=== PATIENT | female | born 1970 | race Caucasian/White ===

== ENCOUNTER 2016-08-01 09:45 | Emergency (ER) | payer BC ==
[~2016-08-01] VITALS: Ht 162.6 cm; Wt 86.2 kg
[2016-08-01] MEDS ORDERED: ONDANSETRON PF 4 MG/2 ML VIAL. IV ONE (11:00)
[2016-08-01] MEDS ORDERED: IBUPROFEN 800 MG TABLET. PO ONE (11:00)
[2016-08-01] MEDS ORDERED: IV NORMAL SALINE 1000ML BAG 1,000 ML IV ONE (11:00)
[2016-08-01 11:17] LABS: BILIRUBIN,URINE SMALL (NEG); GLUCOSE,URINE NEGATIVE (NEG); NITRITE,URINE NEGATIVE (NEG); PROTEIN,URINE 30 mg/dL (NEG-TRACE)
[2016-08-01 11:25] LABS: BASO # 0.1 x10^3/uL (0.0-0.2); BASO % 1 % (0-3); EOS % 0 % (0-3); HEMATOCRIT 35.8 % (36.0-47.0); HEMOGLOBIN 11.8 g/dL (12.0-15.5); LYMPH # 0.7 x10^3/uL (1.0-4.8); LYMPH % 15 % (24-48); MEAN CORPUSCULAR HEMOGLOBIN 33 pg (25-35); MEAN CORPUSCULAR HGB CONC 33 g/dL (31-37); MEAN CORPUSCULAR VOLUME 99 fL (79-100); MONO % 11 % (0-9); NEUT % 73 % (31-73); PLATELET COUNT 173 x10^3/uL (140-400); RED BLOOD COUNT 3.63 x10^6/uL (3.50-5.40); RED CELL DISTRIBUTION WIDTH 16.1 % (11.5-14.5); WHITE BLOOD COUNT 4.8 x10^3/uL (4.0-11.0)
[2016-08-01 11:25] LABS: BARBITURATES NEG (NEG); BENZODIAZEPINES NEG (NEG); CANNABINOIDS NEG (NEG); COCAINE NEG (NEG); METHADONE NEG (NEG); OPIATES NEG (NEG); PHENCYCLIDINE NEG (NEG)
[2016-08-01 11:26] LABS: ETHANOL, URINE POS (NEG)
[2016-08-01 11:29] LABS: CALCIUM 8.3 mg/dL (8.5-10.1); CREATININE 0.8 mg/dL (0.6-1.0); GFR 77.9; POTASSIUM 3.2 mmol/L (3.5-5.1)
[2016-08-01 11:32] LABS: BACTERIA,URINE FEW /HPF (0-FEW); RBC,URINE RARE /HPF (0-2); SQUAMOUS EPITHELIAL CELL,UR MANY /LPF
[2016-08-01 11:33] LABS: YEAST,URINE PRESENT /HPF
[2016-08-01 11:33] LABS: OBC FLU VALID
[2016-08-01 11:35] LABS: ALBUMIN 2.9 g/dL (3.4-5.0); ALBUMIN/GLOBULIN RATIO 0.5 (1.0-1.7); TOTAL PROTEIN 8.3 g/dL (6.4-8.2)
--- NOTE | 2016-08-01 11:36 | RAD ---
Chest, 2 views, 08/01/2016: History: Cough The heart size and pulmonary vascularity are normal. No pulmonary infiltrates are seen. There is no evidence of pleural fluid. IMPRESSION: No acute cardiopulmonary abnormality is detected.
[2016-08-01] MEDS ORDERED: FLUC150T PO (13:29)
[2016-08-01] MEDS ORDERED: CEPH500T PO (13:29)
[2016-08-01] MEDS ORDERED: BENZ100C PO (13:29)
--- NOTE | 2016-08-01 13:29 | PHYS DOC ---
Past Medical History Past Medical History: Anxiety, GERD, Liver Disease, Other Additional Past Medical Histor: insomnia Past Surgical History: Hysterectomy, Tonsillectomy, Other Additional Past Surgical Histo: uterine ablation Additional Information: quit x 20 years ago Alcohol Use: Heavy Drug Use: None Adult General Chief Complaint Chief Complaint: FLU SYMPTOM HPI HPI Patient is a 45 year old female with history of alcohol abuse, liver cirrhosis , who presents today with multiple complaints. Patient is complaining of a productive cough for 5 days, she is also complaining of a sore throat and bodyaches. She is also complaining of posttussis emesis. Patient denies any abdominal pain. Denies any fever. She states she did drink last night but she will not mention how much. She states this is a chronic issue she does not want it addressed. Review of Systems Review of Systems Constitutional: See history of present illness Eyes: Denies change in visual acuity, redness, or eye pain [] HENT: sore throat [] Respiratory: cough Cardiovascular: No additional information not addressed in HPI [] GI: See history of present illness : Denies dysuria or hematuria [] Musculoskeletal: Denies back pain or joint pain [] Integument: Denies rash or skin lesions [] Neurologic: Denies headache, focal weakness or sensory changes [] Endocrine: Denies polyuria or polydipsia [] Current Medications Current Medications Current Medications Medications (Trade) Dose Ordered Sig/Romeo Start Time Stop Time Status Last Admin Dose Admin Ibuprofen (Motrin) 800 mg 1X ONCE 08/01/16 11:00 08/01/16 11:01 DC 08/01/16 11:42 800 MG Ondansetron HCl (Zofran) 4 mg 1X ONCE 08/01/16 11:00 08/01/16 11:01 DC 08/01/16 11:40 4 MG Sodium Chloride (Iv Sodium Chloride 0.9% 1000ml Bag) 1,000 ml @ 1,000 mls/hr 1X ONCE 08/01/16 11:00 08/01/16 11:59 DC 08/01/16 11:10 1,000 MLS/HR Allergies Allergies Allergies Coded Allergies Type Severity Reaction Last Updated Verified No Known Drug Allergies 08/01/16 No Physical Exam Physical Exam Constitutional: Well developed, well nourished, no acute distress, non-toxic appearance. [] HENT: Normocephalic, atraumatic, bilateral external ears normal, oropharynx moist, no oral exudates, nose normal. [] Eyes: PERRLA, EOMI, conjunctiva normal, no discharge. [] Neck: Normal range of motion, no tenderness, supple, no stridor. [] Cardiovascular:Heart rate regular rhythm, no murmur [] Lungs & Thorax: Bilateral breath sounds clear to auscultation [] Abdomen: Bowel sounds normal, soft, no tenderness, no masses, no pulsatile masses. [] Skin: Warm, dry, no erythema, no rash. [] Back: No tenderness, no CVA tenderness. [] Extremities: No tenderness, no cyanosis, no clubbing, ROM intact, no edema. [] Neurologic: Alert and oriented X 3, normal motor function, normal sensory function, no focal deficits noted. [] Psychologic: Affect normal, judgement normal, mood normal. [] Current Patient Data Vital Signs Vital Signs Date Time Temp Pulse Resp B/P Pulse Ox O2 Delivery O2 Flow Rate FiO2 08/01/16 10:30 99.7 93 22 124/65 98 Room Air 99.7 Lab Values Laboratory Tests Test 08/01/16 10:25 08/01/16 10:30 08/01/16 11:10 Urine Collection Type Unknown Urine Color Kaur Urine Clarity Clear Urine pH 6.0 Urine Specific [place] 1.025 Urine Protein 30mg/dL (NEG-TRACE) Urine Glucose (UA) Negativemg/dL (NEG) Urine Ketones (Stick) Tracemg/dL (NEG) Urine Blood Negative (NEG) Urine Nitrite Negative (NEG) Urine Bilirubin Small (NEG) Urine Urobilinogen Dipstick 2.0mg/dL (0.2 mg/dL) Urine Leukocyte Esterase Small (NEG) Urine RBC Rare/HPF (0-2) Urine WBC 5-10/HPF (0-4) Urine Squamous Epithelial Cells Many/LPF Urine Bacteria Few/HPF (0-FEW) Urine Mucus Mod/LPF Urine Yeast Present/HPF Urine Opiates Screen Neg (NEG) Urine Methadone Screen Neg (NEG) Urine Barbiturates Neg (NEG) Urine Phencyclidine Screen Neg (NEG) Urine Amphetamine/Methamphetamine Neg (NEG) Urine Benzodiazepines Screen Neg (NEG) Urine Cocaine Screen Neg (NEG) Urine Cannabinoids Screen Neg (NEG) Urine Ethyl Alcohol Pos (NEG) Influenza Type A Antigen Negative (NEGATIVE) Influenza Type B Antigen Positive (NEGATIVE) White Blood Count 4.8x10^3/uL (4.0-11.0) Red Blood Count 3.63x10^6/uL (3.50-5.40) Hemoglobin 11.8g/dL (12.0-15.5) L Hematocrit 35.8% (36.0-47.0) L Mean Corpuscular Volume 99fL (79-100) Mean Corpuscular Hemoglobin 33pg (25-35) Mean Corpuscular Hemoglobin Concent 33g/dL (31-37) Red Cell Distribution Width 16.1% (11.5-14.5) H Platelet Count 173x10^3/uL (140-400) Neutrophils (%) (Auto) 73% (31-73) Lymphocytes (%) (Auto) 15% (24-48) L Monocytes (%) (Auto) 11% (0-9) H Eosinophils (%) (Auto) 0% (0-3) Basophils (%) (Auto) 1% (0-3) Neutrophils # (Auto) 3.5x10^3uL (1.8-7.7) Lymphocytes # (Auto) 0.7x10^3/uL (1.0-4.8) L Monocytes # (Auto) 0.5x10^3/uL (0.0-1.1) Eosinophils # (Auto) 0.0x10^3/uL (0.0-0.7) Basophils # (Auto) 0.1x10^3/uL (0.0-0.2) Sodium Level 144mmol/L (136-145) Potassium Level 3.2mmol/L (3.5-5.1) L Chloride Level 104mmol/L (98-107) Carbon Dioxide Level 27mmol/L (21-32) Anion Gap 13 (6-14) Blood Urea Nitrogen 5mg/dL (7-20) L Creatinine 0.8mg/dL (0.6-1.0) Estimated GFR (Cockcroft-Gault) 77.9 BUN/Creatinine Ratio 6 (6-20) Glucose Level 89mg/dL (70-99) Calcium Level 8.3mg/dL (8.5-10.1) L Total Bilirubin 1.0mg/dL (0.2-1.0) Aspartate Amino Transferase (AST) 270U/L (15-37) H Alanine Aminotransferase (ALT) 49U/L (14-59) Alkaline Phosphatase 164U/L (46-116) H Total Protein 8.3g/dL (6.4-8.2) H Albumin 2.9g/dL (3.4-5.0) L Albumin/Globulin Ratio 0.5 (1.0-1.7) L Lipase 232U/L (73-393) Ethyl Alcohol Level 130mg/dL (0-10) H Laboratory Tests 08/01/16 11:10 Laboratory Tests 08/01/16 11:10 EKG EKG [] Radiology/Procedures Radiology/Procedures [] Course & Med Decision Making Course & Med Decision Making Pertinent Labs and Imaging studies reviewed. (See chart for details) This is an alcoholic patient who presents with multiple complaints including a productive cough, bodyaches, posttussis emesis, sore throat. Patient is in no distress. She did state she drank last night she will not mention how much. She states she does not want this addressed today. Patient denies any fever. CBC within acute findings, CMP with potassium of 3.2, patient was given 40 mEq of potassium in the ED,AST 270, AST 49, alkaline phosphate 164. Alcohol level 130. Urine positive for UTI and yeast. Patient is afebrile in the ED. Patient was discharged with Keflex. She also tested positive for influenza B, she's had symptoms for more than 2 days, symptomatic management encouraged. She was discharged with Zofran. Instructed to push fluids maintain good hand hygiene. Discharged with fluconazole one-time dose for the yeast infection in her urine. Follow-up with her doctor in a week. Encouraged to consider getting help for alcohol abuse. Dragon Disclaimer Dragon Disclaimer This electronic medical record was generated, in whole or in part, using a voice recognition dictation system. Departure Departure Impression: Primary Impression: Influenza B Additional Impressions: Cough Viral pharyngitis Hypokalemia Elevated liver enzymes Urinary tract infection Yeast UTI ETOH abuse Disposition: HOME, SELF-CARE Condition: STABLE Referrals: MANOLO BAUTISTA (PCP) Follow-up with your doctor in the next 7 days Patient Instructions: Hypokalemia, Upper Respiratory Infection, Adult, Easy-to- Read, Urinary Tract Infection Additional Instructions: You were seen for multiple complaints. You tested positive for influenza B. This is a viral illness. Push fluids maintain good hand hygiene. Your urine also tested positive for infection as well as a yeast infection. Take the prescribed antibiotic until completed. Follow-up with your doctor as soon as possible. Scripts Fluconazole (Diflucan)150 Mg Tablet1 Tab PO ONCE #1 TAB Ref 0 Prov:ALEXANDRIA ALVARENGA APRN 08/01/16 Benzonatate (Tessalon Perle)100 Mg Capsule1 Cap PO TID #30 CAP Prov:ALEXANDRIA ALVARENGA APRN 08/01/16 Cephalexin 500 Mg Tablet1 Tab PO BID #14 TAB Prov:ALEXANDRIA ALVARENGA APRN 08/01/16 Problem Qualifiers Additional Impressions: Urinary tract infection Urinary tract infection type: acute cystitis Hematuria presence: without hematuria Qualified Code: N30.00 - Acute cystitis without hematuria ALEXANDRIA ALVARENGA APRN Aug 01, 2016 13:29
[2016-08-01 13:30] VITALS: BP 143/78
[2016-08-01] MEDS ORDERED: POTASSIUM CHLORIDE 20 MEQ TABLET.ER. PO ONE (13:30)
== END 2016-08-01 13:45 | disposition home or self-care (01) ==
LOC: ER 09:45
DX: J10.1 Influenza due to other identified influenza virus with other respiratory manifestations (principal); E87.6 Hypokalemia; R74.8 Abnormal levels of other serum enzymes; N30.00 Acute cystitis without hematuria; B37.49 Other urogenital candidiasis; F10.10 Alcohol abuse, uncomplicated; K21.9 Gastro-esophageal reflux disease without esophagitis; K74.60 Unspecified cirrhosis of liver; G47.00 Insomnia, unspecified; F41.9 Anxiety disorder, unspecified; Z87.891 Personal history of nicotine dependence; Z90.710 Acquired absence of both cervix and uterus
CPT/HCPCS: 36415; 71020; 80053; 81001; 83690; 85027; 87086; 87804; 96361; 96374; 99285; G0480; G0481; J2405; J7030